=== PATIENT | female | born 1945 | race Caucasian/White ===

== ENCOUNTER → 2018-11-27 | Outpatient (CLI) | payer OTHER, BC | LOC: RAD 09:21 | DX: Z12.31 Encounter for screening mammogram for malignant neoplasm of breast (principal) ==

== ENCOUNTER → 2018-12-10 | Outpatient (CLI) | payer OTHER, BC | LOC: RAD 01:13 | DX: N63.20 Unspecified lump in the left breast, unspecified quadrant (principal); N63.10 Unspecified lump in the right breast, unspecified quadrant; N28.1 Cyst of kidney, acquired ==

== ENCOUNTER → 2019-01-14 | Outpatient (CLI) | payer OTHER | LOC: CAT 10:16 | DX: Z13.6 Encounter for screening for cardiovascular disorders (principal); E78.00 Pure hypercholesterolemia, unspecified; I25.10 Atherosclerotic heart disease of native coronary artery without angina pectoris ==

== ENCOUNTER → 2021-03-27 | Outpatient (CLI) | payer OTHER, BC | LOC: RAD 11:12 | PROVIDERS: ATTEND Nurse Practitioner | DX: E78.2 Mixed hyperlipidemia (principal); M41.84 Other forms of scoliosis, thoracic region; F41.9 Anxiety disorder, unspecified ==